=== PATIENT | female | born 1950 | race Caucasian/White ===

== ENCOUNTER 2018-12-04 10:04 | Day surgery (SDC) | payer MEDICARE, OTHER ==
[~2018-12-04] VITALS: Ht 162.6 cm; Wt 68.2 kg
[~2018-12-04 10:04] MED LIST: AMLO10; CRUTCH4 USE; HYDACE5325 PO; HYDCHL12.5; LOSARTAN POTAS100 MG; METO100
--- NOTE | 2018-12-04 12:42 | NUR ---
12/04/18 1242 Lulú Rosenthal PT. VERBALIZES O2 MADE HER NOSE DRY. PT. INSTRUCTED THAT O2 CAN CAUSE NOSE TO RUN OR BE DRY & SHOULD GET BETTER.
== END 2018-12-04 12:27 | disposition home or self-care (01) ==
LOC: ORSCSDS 10:04
PROVIDERS: Surgery
PROC: 0DJD8ZZ Inspection of Lower Intestinal Tract, Via Natural or Artificial Opening Endoscopic (ICD-10-PCS; principal; 2018-12-04 11:30)
DX: Z12.11 Encounter for screening for malignant neoplasm of colon (principal); Z86.010 Personal history of colon polyps; E78.00 Pure hypercholesterolemia, unspecified; I10 Essential (primary) hypertension; Z87.891 Personal history of nicotine dependence; Z79.899 Other long term (current) drug therapy
CPT/HCPCS: J2704; J7120

== ENCOUNTER → 2019-07-27 | Outpatient (CLI) | payer MEDICARE ==
[2019-07-27 09:15] LABS: BASOPHILS ABSOLUTE AUTO 0.01 K/mm3 (0.00-0.23); BASOPHILS PERCENT AUTO 0 % (0-2); EOSINOPHILS ABSOLUTE AUTO 0.05 K/mm3 (0.00-0.68); EOSINOPHILS PERCENT AUTO 1 % (0-6); Hemoglobin 14.1 g/dL (11.5-16.0); IMMATURE GRAN ABSOLUTE AUTO 0.06 K/mm3 (0.00-0.10); IMMATURE GRAN PERCENT AUTO 1 % (0-1); LYMPHOCYTES ABSOLUTE AUTO 2.93 K/mm3 (0.84-5.20); LYMPHOCYTES PERCENT AUTO 33 % (21-46); MONOCYTES ABSOLUTE AUTO 0.73 K/mm3 (0.16-1.47); MONOCYTES PERCENT AUTO 8 % (4-13); Mean Corpuscular HGB 34.2 pg (26.0-34.0); Mean Corpuscular HGB Conc 34.4 g/dL (31.5-36.5); Mean Corpuscular Volume 100 fL (80-100); Mean Platelet Volume 9.4 fL (9.1-12.4); NEUTROPHILS ABSOLUTE AUTO 5.15 K/mm3 (1.96-9.15); NEUTROPHILS PERCENT AUTO 58 % (41-73); Platelet Count 239 K/mm3 (150-400); RDW Coefficient Variation 12.7 % (11.7-14.2); RDW Standard Deviation 46.4 fL (35.1-46.3); Red Blood Cell Count 4.12 M/mm3 (3.80-5.20); White Blood Cell Count 8.93 K/mm3 (4.00-11.30)
[2019-07-27 09:27] LABS: Albumin, Blood 3.6 g/dL (3.4-5.0); Albumin/Globulin Ratio 0.9 (0.8-1.8); Bilirubin, Total 0.5 mg/dL (0.1-1.0); Bun/Creatinine Ratio 27.1 (12.0-20.0); Calcium, Blood 8.7 mg/dL (8.5-10.1); Creatinine, Blood 1.4 mg/dL (0.40-1.00); Globulin, Blood 3.8 g/dL (2.2-4.0); Total Protein, Blood 7.4 g/dL (6.4-8.2)
== END | disposition home or self-care (01) ==
LOC: LAB EV 09:10 → LAB SHORT 09:10
PROVIDERS: Physician Assistant
DX: R10.13 Epigastric pain (principal)
CPT/HCPCS: 80053; 83690; 85025

== ENCOUNTER 2019-08-30 21:12 | Emergency (ER) | payer MEDICARE ==
[~2019-08-30] VITALS: Ht 160 cm; Wt 66.2 kg
[2019-08-30 21:59] LABS: BASOPHILS ABSOLUTE AUTO 0.02 K/mm3 (0.00-0.23); BASOPHILS PERCENT AUTO 0 % (0-2); EOSINOPHILS ABSOLUTE AUTO 0.09 K/mm3 (0.00-0.68); EOSINOPHILS PERCENT AUTO 2 % (0-6); Hematocrit 39.2 % (33.0-51.0); Hemoglobin 13.1 g/dL (11.5-16.0); IMMATURE GRAN ABSOLUTE AUTO 0.02 K/mm3 (0.00-0.10); IMMATURE GRAN PERCENT AUTO 0 % (0-1); LYMPHOCYTES ABSOLUTE AUTO 2.01 K/mm3 (0.84-5.20); LYMPHOCYTES PERCENT AUTO 35 % (21-46); MONOCYTES ABSOLUTE AUTO 0.38 K/mm3 (0.16-1.47); MONOCYTES PERCENT AUTO 7 % (4-13); Mean Corpuscular HGB 34.2 pg (26.0-34.0); Mean Corpuscular HGB Conc 33.4 g/dL (31.5-36.5); Mean Corpuscular Volume 102 fL (80-100); Mean Platelet Volume 9.8 fL (9.1-12.4); NEUTROPHILS ABSOLUTE AUTO 3.17 K/mm3 (1.96-9.15); NEUTROPHILS PERCENT AUTO 56 % (41-73); Platelet Count 197 K/mm3 (150-400); RDW Coefficient Variation 12.9 % (11.7-14.2); Red Blood Cell Count 3.83 M/mm3 (3.80-5.20); White Blood Cell Count 5.69 K/mm3 (4.00-11.30)
[2019-08-30 22:32] LABS: Albumin, Blood 3.8 g/dL (3.4-5.0); Albumin/Globulin Ratio 1.1 (0.8-1.8); Bilirubin, Total 0.2 mg/dL (0.1-1.0); Bun/Creatinine Ratio 14.8 (12.0-20.0); Calcium, Blood 8.8 mg/dL (8.5-10.1); Creatinine, Blood 1.08 mg/dL (0.40-1.00); Globulin, Blood 3.5 g/dL (2.2-4.0); Potassium, Blood 3.7 mmol/L (3.5-5.5); Total Protein, Blood 7.3 g/dL (6.4-8.2)
[2019-08-30] MEDS ORDERED: Carafate1 GM/10 ML PO (23:03)
[2019-08-30] MEDS ORDERED: Prilosec Otc20 MG PO (23:03)
== END 2019-08-30 23:15 | disposition home or self-care (01) ==
LOC: ER 21:12
PROVIDERS: Emergency Medicine
DX: K29.70 Gastritis, unspecified, without bleeding (principal); K27.9 Peptic ulcer, site unspecified, unspecified as acute or chronic, without hemorrhage or perforation; F17.200 Nicotine dependence, unspecified, uncomplicated; Z88.0 Allergy status to penicillin; Z88.5 Allergy status to narcotic agent
CPT/HCPCS: 36415; 80053; 83690; 85025; 99284

== ENCOUNTER → 2024-07-16 | Outpatient (CLI) | payer MEDICARE ==
[~2024-07-16] MED LIST changes: +Carafate1 GM/10 ML PO; +Prilosec Otc20 MG PO
== END ==
LOC: LAB SHORT 13:56 → LAB 13:56
DX: R10.30 Lower abdominal pain, unspecified (principal)
CPT/HCPCS: 87086

== ENCOUNTER 2025-03-09 15:12 | Observation (INO) | payer MEDICARE ==
[~2025-03-09] VITALS: Ht 162.6 cm; Wt 59.9 kg
[~2025-03-09 15:12] MED LIST changes: -LOSARTAN POTAS100 MG; +LOSARTAN POTAS100 MG PO
[2025-03-09 16:26] LABS: BASOPHILS ABSOLUTE AUTO 0.03 K/mm3 (0.00-0.23); BASOPHILS PERCENT AUTO 0 % (0-2); EOSINOPHILS ABSOLUTE AUTO 0.06 K/mm3 (0.00-0.68); EOSINOPHILS PERCENT AUTO 1 % (0-6); Hematocrit 40.0 % (33.0-51.0); Hemoglobin 13.0 g/dL (11.5-16.0); IMMATURE GRAN ABSOLUTE AUTO 0.03 K/mm3 (0.00-0.10); IMMATURE GRAN PERCENT AUTO 0 % (0-1); LYMPHOCYTES ABSOLUTE AUTO 1.91 K/mm3 (0.84-5.20); LYMPHOCYTES PERCENT AUTO 23 % (21-46); MONOCYTES ABSOLUTE AUTO 0.53 K/mm3 (0.16-1.47); MONOCYTES PERCENT AUTO 7 % (4-13); Mean Corpuscular HGB Conc 32.5 g/dL (31.5-36.5); Mean Corpuscular Volume 101 fL (80-100); NEUTROPHILS ABSOLUTE AUTO 5.59 K/mm3 (1.96-9.15); NEUTROPHILS PERCENT AUTO 69 % (41-73); NRBC ABSOLUTE 0.00 K/mm3 (0.00-0.02); NRBC Auto 0.0 /100 WBC (0.0-0.2); Platelet Count 209 K/mm3 (150-400); RDW Coefficient Variation 13.2 % (11.7-14.2); RDW Standard Deviation 49.3 fL (35.1-46.3)
[2025-03-09 17:05] LABS: Alanine Aminotransfer (ALT/SGP 23.0 U/L (12-78); Albumin, Blood 3.9 g/dL (3.4-5.0); Albumin/Globulin Ratio 1.2 (0.8-1.8); Anion Gap 11.0 mmol/L (3-11); Aspartate Aminotrans (AST/SGOT 24.0 U/L (12-37); Bilirubin, Total 0.4 mg/dL (0.1-1.0); Blood Urea Nitrogen 8.0 mg/dL (8-24); CO2, Blood 24.0 mmol/L (21-32); Calcium, Blood 8.1 mg/dL (8.5-10.1); Chloride, Blood 108.0 mmol/L (98-108); Creatinine, Blood 0.64 mg/dL (0.40-1.00); Globulin, Blood 3.3 g/dL (2.2-4.0); Glucose, Blood 107.0 mg/dL (70-99); Potassium, Blood 3.5 mmol/L (3.5-5.5); Sodium, Blood 139.0 mmol/L (136-145); Total Protein, Blood 7.2 g/dL (6.4-8.2)
[2025-03-09] MEDS ORDERED: NS 500 ML IV SCH (20:20)
[2025-03-09] MEDS ORDERED: Ondansetron HCl 2 MG / ML 2ML Vial IV ONE ×2 (20:20→20:30)
[2025-03-09] MEDS ORDERED: CefTRIAXone Sodium 1,000 MG in NS 50 ML IV ONE (20:25)
[2025-03-09] MEDS ORDERED: Ketorolac Tromethamine 30mg Vial IV ONE (20:30)
[2025-03-09] MEDS ORDERED: MetroNIDAZOLE 500MG/NS 100 ml 100 ML IV ONE (20:30)
[2025-03-09] MEDS ORDERED: NS 1,000 ML IV SCH ×2 (20:30→21:20)
[2025-03-09] MEDS ORDERED: FLU VACC TS2025(65UP)/MF59C/PF 45 MCG/0.5 ML SYRINGE IM SCH (21:20)
[2025-03-09] MEDS ORDERED: Ondansetron HCl 2 MG / ML 2ML Vial IV PRN (21:20)
[2025-03-09] MEDS ORDERED: FentaNYL Citrate 50 MCG/ML 2 ML Injection IV PRN (21:20)
[2025-03-09 21:29] LABS: Source, Urine Clean Catch
[2025-03-09] MEDS ORDERED: Albuterol 2.5 MG/3 ML VIAL INH PRN (21:30)
[2025-03-09 21:33] LABS: Bilirubin, Urine Neg (Neg); Color, Urine Yellow (P-Yellow); Glucose Qualitative, Urine Neg (Neg); Ketones, Urine 4+ (Neg); Leukocyte Esterase, Urine 1+ (Neg); Protein, Urine 1+ (Neg); Specific Gravity, Urine 1.010 (1.003-1.022); Urobilinogen, Urine NORM (Normal)
[2025-03-09 21:43] LABS: Red Blood Cells, Urine Not Seen /hpf (0-2); White Blood Cells, Urine 0-2 /hpf (0-5)
[2025-03-09 22:46] VITALS: BP 133/75
[2025-03-09] MEDS ORDERED: ALBU90OI INH (22:46)
[2025-03-09] MEDS ORDERED: Crestor40 MG (22:47)
[2025-03-09] MEDS ORDERED: AMLO10 PO (22:47)
[2025-03-09] MEDS ORDERED: FEROSUL325 M1 PO (22:49)
[2025-03-09] MEDS ORDERED: CLOP75 PO (22:49)
[2025-03-10] VITALS (9 sets, daily range): BP systolic 116–153; BP diastolic 66–77
--- NOTE | 2025-03-10 04:03 | NUR ---
NOC SUMMARY- PT ARRIVED TO ROOM IN NO DISTRESS. PT AMBULATORY. PT VOIDING WELL. PT DENIES PAIN OR DISCOMFORT. PT HAS BEEN NPO SINCE [place]. NO N/V NOTED. CALL LIGHT IN REACH.
[2025-03-10 04:27] LABS: Hematocrit 35.1 % (33.0-51.0); Hemoglobin 11.6 g/dL (11.5-16.0); Mean Corpuscular HGB Conc 33.0 g/dL (31.5-36.5); Mean Corpuscular Volume 102 fL (80-100); NRBC ABSOLUTE 0.00 K/mm3 (0.00-0.02); NRBC Auto 0.0 /100 WBC (0.0-0.2); Platelet Count 180 K/mm3 (150-400); RDW Coefficient Variation 13.2 % (11.7-14.2); RDW Standard Deviation 49.1 fL (35.1-46.3)
[2025-03-10] MEDS ORDERED: Prochlorperazine Edisylate 10 mg Vial IV PRN ×2 (04:35→16:00)
[2025-03-10] MEDS ORDERED: Ondansetron HCl 2 MG / ML 2ML Vial IV PRN ×2 (04:40→16:00)
[2025-03-10 04:51] LABS: Anion Gap 9.0 mmol/L (3-11); Blood Urea Nitrogen 6.0 mg/dL (8-24); CO2, Blood 23.0 mmol/L (21-32); Calcium, Blood 6.8 mg/dL (8.5-10.1); Chloride, Blood 108.0 mmol/L (98-108); Creatinine, Blood 0.6 mg/dL (0.40-1.00); Glucose, Blood 92.0 mg/dL (70-99); Potassium, Blood 3.4 mmol/L (3.5-5.5); Sodium, Blood 137.0 mmol/L (136-145)
[2025-03-10] MEDS ORDERED: FentaNYL Citrate 50 MCG/ML 2 ML Injection IV PRN ×3 (07:15→16:00)
--- NOTE | 2025-03-10 08:10 | NUR ---
Patient went through a bout of nausea and had an unmeasurably small amount of emesis, after 15 minutes the patient had the feeling subside enough to lay down. RN notified.
[2025-03-10] MEDS ORDERED: Metoclopramide HCl 5MG / ML 2ML Vial IV PRN (08:55)
[2025-03-10] MEDS ORDERED: FISH OIL 1,2001 EAC4 PO (10:02)
[2025-03-10] MEDS ORDERED: Bupivacaine 0.5% HCl 5 MG/ML 30MLVIAL ONE (13:41)
--- NOTE | 2025-03-10 13:51 | NUR ---
MEDICATED WITH ZOFRAN 4MG IV AT 1341. GOOD RELIEF WITH MED. CONTINUE TO MONITOR.
[2025-03-10] MEDS ORDERED: CefTRIAXone Sodium 1,000 MG in NS 100 ML IV SCH (14:18)
--- NOTE | 2025-03-10 14:57 | NUR ---
FLUSHED RFA 20G IV SITE WITH 10NS/PATENT.
[2025-03-10] MEDS ORDERED: Dexamethasone Sod Phos 10 MG/ML 1ML VIAL IV ONE (15:35)
[2025-03-10] MEDS ORDERED: FentaNYL Citrate 50 MCG/ML 2 ML Injection ONE ×2 (15:43→16:10)
[2025-03-10] MEDS ORDERED: CeFAZolin Sodium 1000 mg Vial IV ONE (15:51)
[2025-03-10] MEDS ORDERED: HYDROmorphone HCl/Pf 1MG SYR IV PRN ×2 (15:55→16:00)
[2025-03-10] MEDS ORDERED: Albuterol 2.5 MG/3 ML VIAL INH PRN (16:00)
[2025-03-10] MEDS ORDERED: Sugammadex Sodium 200 MG/2ML SDV (100 MG/ML) ONE (16:21)
[2025-03-10] MEDS ORDERED: OxyCODONE 5 mg/Acetamin 325 mg TABLET PO PRN (18:55)
[2025-03-11 00:04] VITALS: BP 107/65
--- NOTE | 2025-03-11 04:33 | NUR ---
SHIFT SUMMARY WAS ALERT AND FULLY ORIENTED ON ASSESSMENT. POD 0 FOR LAP DENISE. LAP SITES C/D/I. PAIN WELL MANAGED TONIGHT. PT AMBULATING AND VOIDING APPROPRIATELY. PT DENIES SOB, CHEST PAIN, NAUSEA. BT ACTIVE. NO ACUTE EVENTS TONIGHT, NO NOTED CHANGES TO PT CONDITION.
[2025-03-11 04:38] LABS: BASOPHILS ABSOLUTE AUTO 0.00 K/mm3 (0.00-0.23); BASOPHILS PERCENT AUTO 0 % (0-2); EOSINOPHILS ABSOLUTE AUTO 0.00 K/mm3 (0.00-0.68); EOSINOPHILS PERCENT AUTO 0 % (0-6); Hematocrit 37.6 % (33.0-51.0); Hemoglobin 12.3 g/dL (11.5-16.0); IMMATURE GRAN ABSOLUTE AUTO 0.02 K/mm3 (0.00-0.10); IMMATURE GRAN PERCENT AUTO 0 % (0-1); LYMPHOCYTES ABSOLUTE AUTO 0.76 K/mm3 (0.84-5.20); LYMPHOCYTES PERCENT AUTO 12 % (21-46); MONOCYTES ABSOLUTE AUTO 0.13 K/mm3 (0.16-1.47); MONOCYTES PERCENT AUTO 2 % (4-13); Mean Corpuscular HGB Conc 32.7 g/dL (31.5-36.5); Mean Corpuscular Volume 103 fL (80-100); NEUTROPHILS ABSOLUTE AUTO 5.37 K/mm3 (1.96-9.15); NEUTROPHILS PERCENT AUTO 86 % (41-73); NRBC ABSOLUTE 0.00 K/mm3 (0.00-0.02); NRBC Auto 0.0 /100 WBC (0.0-0.2); Platelet Count 224 K/mm3 (150-400); RDW Coefficient Variation 12.9 % (11.7-14.2); RDW Standard Deviation 49.2 fL (35.1-46.3)
[2025-03-11 07:06] VITALS: BP 125/82
[2025-03-11] MEDS ORDERED: Percocet 5-3251 EACH PO (11:01)
--- NOTE | 2025-03-11 11:52 | NUR ---
DISCHARGE NOTE: PT DISCHARGED WITH TO DRIVE HOME. PT'S PIV REMOVED PRIOR TO DISHCARGED. PT STATED UNDERSTANDING OF VERBAL DISCHARGE INSTRUCTIONS AND FOLLOW UP CARE. PT VOIDING, AMBULATING, TOLERATING PO INTAKE, AND PAIN IS MANAGED PER EMAR. NO QUESTIONS OR CONCERNS AT TIME OF DISCHARGE.
== END 2025-03-11 11:42 | disposition home or self-care (01) ==
LOC: ER 15:12 → SURS 15:13 → ER 21:16 → SURS 22:00 → ER 22:20 → SURS 03-11 11:42
PROVIDERS: Family Medicine; Nurse Practitioner Acute Care; Student in an Organized Health Care Education/Training Program; Surgery; ADMIT Student in an Organized Health Care Education/Training Program
PROC: 0FT44ZZ Resection of Gallbladder, Percutaneous Endoscopic Approach (ICD-10-PCS; principal; 2025-03-10 15:30)
DX: K80.00 Calculus of gallbladder with acute cholecystitis without obstruction (principal); K82.8 Other specified diseases of gallbladder; I10 Essential (primary) hypertension; J44.9 Chronic obstructive pulmonary disease, unspecified; E78.5 Hyperlipidemia, unspecified; I73.9 Peripheral vascular disease, unspecified; E87.6 Hypokalemia; Z79.02 Long term (current) use of antithrombotics/antiplatelets; Z79.899 Other long term (current) drug therapy; Z88.0 Allergy status to penicillin; Z88.5 Allergy status to narcotic agent; Z87.891 Personal history of nicotine dependence
CPT/HCPCS: 36415; 71046; 76705; 80048; 80053; 81001; 83690; 84484; 85025; 85027; 88304; 93005; 93010; 94760; 96374; 96375; 99285-25; A9270; J0690; J0696; J0780; J1100; J1885; J2405; J2704; J2765; J3010; J7030; J7120